=== PATIENT | male | born 1970 | race Caucasian/White ===

== ENCOUNTER 2019-07-26 16:04 | Outpatient (CLI) | payer OTHER, SELFPAY ==
--- NOTE | ~2019-07-26 | XR_ITS ---
EXAMINATION: XR foot LT 2V DATE: 07/26/2019 16:41 INDICATION: Pain at the left first metatarsal TECHNIQUE: Dorsoplantar and lateral views of the left foot were obtained. COMPARISON: None. FINDINGS: Bone alignment is normal. No acute fracture. Suggestion of possible old fracture deformity at the hea d of the second middle phalanx. Mild to moderate osteoarthritis at the first metatarsophalangeal join t. Additional mild osteoarthritis at a few of the interphalangeal joints. Soft tissues are unremarkab le. IMPRESSION: 1. 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 Reviewed, dictated and finalized at location A. URY WASHER
[2019-07-26 16:46] LABS: Blood Urea Nitrogen 17 mg/dL (9-20); Calcium 9.4 mg/dL (8.4-10.2); Carbon Dioxide 31 mmol/L (22-30); Chloride 99 mmol/L (98-107); Estimated Glomerular Filt Rate > 60; Glucose 84 mg/dL (75-110); Potassium 4.4 mmol/L (3.4-5.0); Sodium 139 mmol/L (137-145); Uric Acid 4.3 mg/dL (3.5-8.5)
== END 2019-07-26 16:05 | disposition home or self-care (01) ==
LOC: ANHLAB 16:06
PROVIDERS: PCP Family Medicine; Visit Provider Nurse Practitioner Family
DX: M19.072 Primary osteoarthritis, left ankle and foot (principal)
CPT/HCPCS: 36415; 73620; 80048; 84550

== ENCOUNTER 2019-10-21 10:22 | Outpatient (CLI) | payer OTHER, SELFPAY ==
--- NOTE | ~2019-10-21 | XR_ITS ---
EXAMINATION: XR finger 4th LT min 2V DATE: 10/21/2019 10:54 INDICATION: Left hand fourth digit pain and swelling. TECHNIQUE: 4 views of left hand fourth digit were obtained. COMPARISON: None. FINDINGS: Bone alignment is normal. No fracture. Joint spaces are normal. IMPRESSION: 1. No fracture. Reviewed, dictated and finalized at location A. IMPRESSION: 1. No fracture.
== END 2019-10-21 10:23 | disposition home or self-care (01) ==
PROVIDERS: PCP Family Medicine; Visit Provider Nurse Practitioner Family
DX: M79.643 Pain in unspecified hand (principal)
CPT/HCPCS: 73140

== ENCOUNTER 2019-10-21 10:52 | Emergency (ER) | payer OTHER, SELFPAY ==
[2019-10-21 11:12] VITALS: BP 116/76; PULSE 59; RESP 16; TEMP 36.5; O2SAT 99
--- NOTE | 2019-10-21 11:38 | ED.UPPEXIN ---
HPI - Extremity Injury (Upper) General Chief Complaint: Extremity Injury, Upper Stated Complaint: needs ring cut off Time Seen by Provider: 10/21/19 10:58 Source: RN notes reviewed History of Present Illness HPI narrative: Patient presents emergency department from home for left fourth digit injury. Patient states that he was struck with a piece with a left fourth digit yesterday. He states that he had swelling in that finger. He states that prior to this he had had a ring stuck on his left finger for the past 2 months. He states he tried to get off last night with no relief went to his PCP this morning where they were unable to remove the ring and he was sent for an x-ray. Patient is able to fully extend and flex at the digit denies any other injury Related Data Allergies Allergy/AdvReac Type Severity Reaction Status Date / Time No Known Allergies Allergy Verified 07/26/19 15:01 Review of Systems Review of Systems: Narrative: Gen.: Denies fevers or chills Musculoskeletal: See HPI Neuro: Denies numbness, tingling, weakness Skin: Denies rash Endo: Denies DM PMFSH Past Medical History Medical History (Updated 10/21/19 @ 11:42 by Saad Lucia DO) Patient denies significant medical history Social History Social History Smoking status: Never smoker Second hand tobacco smoke exposure: No Alcohol intake: never Exam Narrative: Exam Narrative: APPEARANCE: No acute distress, nontoxic, resting in bed Eyes: EOMI HEENT: Normocephalic, atraumatic, RESPIRATORY: No respiratory distress MUSCULOSKELETAl: Tender palpation diffusely of the fourth digit on the left with swelling present, a ring is stuck at the base of the digit, capillary refill less than 3 seconds, full flexion extension of the PIP DIP and MCP joint of the fourth digit NEURO: Awake and alert. Following commands, speech normal, no focal deficits SKIN:: Warm, dry. Normal Color no rash or lesions Course Course Emergency Course: Reviewed patient's finger x-ray from outpatient with no fracture seen Procedure note: Ring removal was performed by myself using ring cutters. Following this closure used to spread the ring and the ring was removed Discussed with patient results of workup and diagnosis. Discussed need for follow-up with primary care, proper use of medication, and reasons to return to the emergency department. Patient understands and agrees to current treatment plan Vital Signs Vital signs: Vital Signs Temperature 97.7 F 10/21/19 11:12 Pulse Rate 59 L 10/21/19 11:12 Respiratory Rate 16 10/21/19 11:12 Blood Pressure 116/76 10/21/19 11:12 Pulse Oximetry 99 10/21/19 11:12 Temperature 97.7 F 10/21/19 11:12 Pulse Rate 59 L 10/21/19 11:12 Respiratory Rate 16 10/21/19 11:12 Blood Pressure 116/76 10/21/19 11:12 Pulse Oximetry 99 10/21/19 11:12 Procedures Orthopedic Splinting/Casting Injury #1: Splint: prefabricated Pre-Formed: other (AlumaFoam finger splint) Pre-Procedure Neuro Vascular Exam: normal Post-Procedure Neuro Vascular Exam: normal Discharge Plan Discharge Clinical Impression: Finger sprain, Tight ring on finger Patient Disposition: Home, Self-Care Condition: Stable Instructions: Antibiotic Form, Finger Sprain (ED) Additional Instructions: Return for increasing pain numbness tingling in extremities or any other symptoms of concern Prescriptions: No Action nabumetone 750 mg tablet 750 mg PO BID Qty: 60 RF: 1 Follow-up/Referrals: Peter Flynn MD [Primary Care Provider] - 2 Days Time of Disposition: 11:42
--- NOTE | 2019-10-29 21:19 | PC.NURSE ---
late entry by this RN Pt received a finger splint for right hand ring finger.
== END 2019-10-21 11:48 | disposition home or self-care (01) ==
PROVIDERS: Emergency Provider Emergency Medicine; PCP Family Medicine
DX: S63.615A Unspecified sprain of left ring finger, initial encounter (principal); W49.04XA Ring or other jewelry causing external constriction, initial encounter
CPT/HCPCS: 29130; 99282

== ENCOUNTER → 2019-12-27 10:24 | Outpatient (CLI) | payer OTHER, SELFPAY ==
--- NOTE | ~2019-12-27 | XR_ITS ---
XR thoracic spine 3V DATE: 12/27/2019 10:43 INDICATION: Thoracic back pain TECHNIQUE: AP, lateral, swimmer views COMPARISON: None FINDINGS: Mild dextroscoliosis of the cervical and upper thoracic spine. No fracture or dislocation o r bone destruction. The thoracic pedicles are intact. No paraspinal soft tissue thickening. There is minimal degenerative spurring of the thoracic spine. IMPRESSION: Minimal degenerative spurring Reviewed, dictated and finalized at location B.
--- NOTE | ~2019-12-27 | XR_ITS ---
XR cervical spine min 6V DATE: 12/27/2019 10:43 INDICATION: Neck pain. No recent trauma. TECHNIQUE: AP, open-mouth, lateral, bilateral oblique views. Flexion and extension lateral views. COMPARISON: None FINDINGS: There is reversal of cervical curvature. There is mild dextro scoliosis of the cervical and upper thoracic spine. C1 and C2 are normally aligned and the odontoid process is intact. No fracture or dislocation or lock ed facet. No prevertebral soft tissue swelling. There is mild degenerative disease at C4-5 and moderate degenerative disease at C5-6 and C6-7. There is no instability on flexion or extension. There is mild uncovertebral joint spurring encroaching mildly upon the anterior aspect of the left C4 and C6 neural foramina and apparently to a greater extent at the anterior left C7 neural foramen. Th ere is minimal anterior encroachment at the anterior aspect of the right C4 neural foramen due to unc overtebral joint spurring. IMPRESSION: Reversal of cervical curvature Mild to moderate degenerative changes Reviewed, dictated and finalized at location B.
== END ==
PROVIDERS: PCP Nurse Practitioner Family; Visit Provider Nurse Practitioner Family
DX: M50.30 Other cervical disc degeneration, unspecified cervical region (principal)
CPT/HCPCS: 72052; 72072

== ENCOUNTER 2020-01-10 07:48 | Outpatient (CLI) | payer OTHER, SELFPAY ==
--- NOTE | ~2020-01-10 | MR_ITS ---
EXAMINATION: MR cervical spine wo con EXAM DATE: 01/10/2020 08:40 INDICATION: Cervical disc disorder. TECHNIQUE: Multi-sequential, multiplanar MR images of the cervical spine were obtained without contra st. Axial T2, axial T2 MERGE sequence. Sagittal T1, T2, T2 fat saturation images also obtained. Th ere is no prior study for comparison. FINDINGS: The vertebral bodies are aligned in the AP dimension. There is mild disc disease from C4-7 . The spinal cord signal intensity and intrinsic morphology is normal. Cervicomedullary junction is n ormal in appearance. There are no suspicious marrow signal abnormalities. Paraspinal soft tissue is u nremarkable. Level by level evaluation: C2-C3: Disc does not extend beyond the endplate margin. Uncovertebral joint arthropathy: Mild bilateral. Facet joint arthropathy: Mild to moderate right, mild left. Neural foraminal stenosis: No stenosis. Central canal stenosis: No stenosis. C3-C4: Disc does not extend beyond the endplate margin. Uncovertebral joint arthropathy: Moderate left, mild to moderate right. Facet joint arthropathy: Mild to moderate bilateral. Neural foraminal stenosis: Moderate left, mild to moderate right. Central canal stenosis: No stenosis. C4-C5: There is a mild diffuse disc bulge. Uncovertebral joint arthropathy: Moderate bilateral. Facet joint arthropathy: Mild to moderate left, mild right. Neural foraminal stenosis: Mild to moderate left, mild right. Central canal stenosis: Mild. C5-C6: There is a mild diffuse disc bulge. Uncovertebral joint arthropathy: Moderate bilateral. Facet joint arthropathy: Mild to moderate bilateral. Neural foraminal stenosis: Moderate bilateral. Central canal stenosis: Mild. C6-C7: There is a mild to moderate diffuse disc bulge asymmetric to the left Uncovertebral joint arthropathy: Moderate to severe left, moderate right. Facet joint arthropathy: Mild bilateral. Neural foraminal stenosis: Moderate to severe bilateral. Central canal stenosis: Mild. C7-T1: Disc does not extend beyond the endplate margin. Uncovertebral joint arthropathy: Moderate left, mild to moderate. Facet joint arthropathy: Mild left. Neural foraminal stenosis: Mild to moderate left. Central canal stenosis: No stenosis. IMPRESSION: 1. Multilevel neural foraminal stenosis as detailed above. Reviewed, dictated and finalized at location A.
== END 2020-01-10 07:49 | disposition home or self-care (01) ==
LOC: ANHIMG 07:49
PROVIDERS: PCP Nurse Practitioner Family; Visit Provider Nurse Practitioner Family
DX: M50.90 Cervical disc disorder, unspecified, unspecified cervical region (principal)
CPT/HCPCS: 72141

== ENCOUNTER → 2020-03-03 07:38 | Outpatient (CLI) | payer OTHER, SELFPAY ==
--- NOTE | ~2020-03-03 | XR_ITS ---
EXAMINATION:XR_CERV2-3V_CR DATE: 03/03/2020 08:00 INDICATION: Neck pain TECHNIQUE: AP, lateral, and odontoid views of the cervical spine are provided. COMPARISON: MRI, 01/10/2020 FINDINGS: There are changes of interval anterior fusion and interbody device placement from C5 throug h C7. Bone alignment is normal. The odontoid is intact. No fracture is identified. The vertebral body heights are maintained. Prevertebral soft tissues are normal. IMPRESSION: 1. Changes of interval anterior lower cervical fusion without acute findings. Reviewed, dictated and finalized at location B.
== END ==
PROVIDERS: PCP Family Medicine; Visit Provider Neurological Surgery
DX: M54.2 Cervicalgia (principal); Z98.1 Arthrodesis status
CPT/HCPCS: 72040

== ENCOUNTER → 2020-04-25 08:00 | Outpatient (CLI) | payer OTHER, SELFPAY ==
--- NOTE | ~2020-04-25 | XR_ITS ---
EXAMINATION:XR_CERV2-3V_CR DATE: 04/25/2020 08:49 INDICATION: Cervicalgia, arthrodesis status assessment TECHNIQUE: AP and lateral views of the cervical spine are obtained. COMPARISON: 03/03/2020 FINDINGS: Alignment is normal. There are stable changes of anterior fusion and interbody device place ment from C5 through C7. The odontoid is intact. No fracture is identified. The vertebral body height s are maintained. Prevertebral soft tissues are normal. IMPRESSION: 1. Changes of anterior fusion from C5 through C7 without acute findings or significant interval early e. Reviewed, dictated and finalized at location A. 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 Changes of anterior fusion from C5 through C7 without acute findings or sign ificant interval change.
== END ==
PROVIDERS: PCP Family Medicine; Visit Provider Neurological Surgery
DX: M54.2 Cervicalgia (principal); Z98.1 Arthrodesis status
CPT/HCPCS: 72040

== ENCOUNTER 2021-11-09 08:00 | Outpatient (CLI) | payer OTHER, SELFPAY ==
--- NOTE | ~2021-11-09 | XR_ITS ---
EXAMINATION: XR chest 2V 11/09/2021 08:22 INDICATION: Dry cough. Acute bronchitis. PROCEDURE: 2 view chest COMPARISON: 11/07/2017 FINDINGS: The lungs are clear. The cardiomediastinal silhouette is within normal limits. There are no pleural effusions. There is no pneumothorax suspected. IMPRESSION: 1: NO ACUTE CARDIOPULMONARY DISEASE. Reviewed, dictated and finalized at location D.
== END 2021-11-09 08:01 | disposition home or self-care (01) ==
LOC: ANHIMG 08:02
PROVIDERS: PCP Family Medicine; Visit Provider Nurse Practitioner Family
DX: J20.9 Acute bronchitis, unspecified (principal)
CPT/HCPCS: 71046

== ENCOUNTER 2021-12-10 14:38 | Outpatient (CLI) | payer OTHER, SELFPAY ==
--- NOTE | ~2021-12-10 | XR_ITS ---
EXAMINATION: XR chest 2V DATE: 12/10/2021 15:07 INDICATION: Cough TECHNIQUE: PA and lateral views of the chest were obtained. COMPARISON: Chest radiograph dated 11/09/2021 FINDINGS: The lungs remain clear with no focal airspace opacities, pulmonary edema, pleural effusion or pneumot horax. The cardiomediastinal silhouette is normal. Mild thoracic spondylosis. Lower cervical anterior spinal fusion with interbody bone graft cages and anterior plate and screw fixation. Suture anchor a t the left greater tuberosity suggesting prior rotator cuff repair. IMPRESSION: 1. No acute cardiopulmonary disease. Reviewed, dictated and finalized at location B.
== END 2021-12-10 14:39 | disposition home or self-care (01) ==
PROVIDERS: PCP Family Medicine; Visit Provider Nurse Practitioner Family
DX: R05.9 Cough, unspecified (principal)
CPT/HCPCS: 71046

== ENCOUNTER 2022-01-29 13:43 | Outpatient (CLI) | payer OTHER, SELFPAY ==
--- NOTE | ~2022-01-29 | CT_ITS ---
EXAMINATION: CT diagnostic chest wo con DATE: 01/29/2022 14:05 INDICATION: Cough, dyspnea on exertion. Occupational exposure in the . TECHNIQUE: Computed tomography (CT) of the chest was performed without intravenous contrast. Automate d exposure control and iterative reconstruction technique were employed. Exam dose: 245.50 mGy-cm to brody exam DLP. COMPARISON: 12/10/2021 PA and lateral chest FINDINGS: No pulmonary infiltrate or consolidation or pulmonary mass lesion. Normal heart size. No pericardial or pleural effusion. No hilar or mediastinal mass lesion or lymphad enopathy. Normal caliber of the thoracic aorta. Normal morphology of the adrenal glands. Status post cholecystectomy. Status post lower anterior cervical spine surgical fusion. Included skeletal structures are otherwise unremarkable. IMPRESSION: Status post lower anterior cervical spine surgical fusion Status post cholecystectomy No significant abnormality of the thorax Reviewed, dictated and finalized at Location A. Reviewed, dictated and finalized at location B.
--- NOTE | 2022-01-29 16:18 | WPDPFTINT ---
PFT Procedure Performed PFT Procedure Performed Spirometry with Pre/Post Bronchodilator Plethysmography (Lung Vol) Diffusing Cap (DLCO) Flow Vol Loop PFT Interpretation Lung volumes were measured with the body plethysmography method. Lung volumes are unremarkable. Spirometry showed normal expiratory flow rates and a normal FEV1 to FVC ratio of 71%. Following administration of a bronchodilator there was significant increase in the FEV1. Lung diffusion capacity is within the normal range. The flow volume loop is unremarkable. Impression: Spirometry, lung volumes, and lung diffusion capacity all within the normal range.
== END 2022-01-29 13:44 | disposition home or self-care (01) ==
PROVIDERS: PCP Family Medicine; Visit Provider Physician Assistant
DX: R05.3 Chronic cough (principal); R06.00 Dyspnea, unspecified; Z77.118 Contact with and (suspected) exposure to other environmental pollution; Z90.49 Acquired absence of other specified parts of digestive tract; Z98.1 Arthrodesis status
CPT/HCPCS: 36415; 71250; 82785; 86003; 94060; 94726; 94729

== ENCOUNTER 2022-08-06 08:01 | Emergency (ER) | payer OTHER, SELFPAY ==
[2022-08-06 08:11] VITALS: BP 115/80; PULSE 80; RESP 16; TEMP 36.5; O2SAT 99
--- NOTE | 2022-08-06 08:34 | ED.GENADULT ---
HPI - General Adult General Chief complaint: Skin/Abscess/Foreign Body Stated complaint: BACK PAIN/HIVES Source: patient Mode of arrival: ambulatory Limitations: no limitations History of Present Illness HPI narrative: Patient presents for evaluation of a rash. He indicates he has had symptoms for since April 2022. No new lotions, soaps, topical products or detergents. No new foods. He has been given Medrol Dosepak and triamcinolone without considerable improvement in his symptoms. He has taken Xyzal and Pepcid with improvement in his symptoms. Thiis morning he woke with some swelling to his lower lip. He is not on an martin inhibitor. No difficulty breathing or swallowing. He has some low back pain after doing some yardwork. Related Data Allergies Allergy/AdvReac Type Severity Reaction Status Date / Time No Known Allergies Allergy Verified 08/06/22 08:22 Review of Systems Review of Systems: CONSTITUTIONAL: Denies fever, chills, or sweats. EYES: Denies visual changes, redness, or discharge. ENT: Denies rhinorrhea, congestion, sore throat, or otalgia. CARDIOVASCULAR: Denies chest pain, palpitations, or edema. RESPIRATORY: Denies cough or dyspnea. GASTROINTESTINAL: Denies abdominal pain, nausea, vomiting, or diarrhea. GENITOURINARY: Denies dysuria or hematuria. SKIN: Reports rash to torso and extremities x 4. MUSCULOSKELETAL: Reports low back pain. Denies joint pain, or myalgia. NEUROLOGIC: Denies headache, numbness, dizziness, or weakness. PSYCHIATRIC: Denies anxiety or depression. [facility] Past Medical History Medical History BMI 25.0-25.9,adult Disc disorder of cervical region Occupational exposure to environmental pollution Other cervical disc degeneration, cervicothoracic region Pancreatitis Patient denies significant medical history Rotator cuff syndrome of left shoulder Thoracic disc disease Surgical History Surgical History History of cholecystectomy History of fusion of cervical spine History of neck surgery History of repair of left rotator cuff Family History Family History Father No problems noted. Mother No problems noted. Social History Social History Smoking status: Never smoker Second hand tobacco smoke exposure: No Alcohol intake: never Substance use: never Substance use type: does not use Living arrangements: with family Occupation/Education: occupation Additional occupation/education comments: [employer] Gender identity (if verbalized by the patient): Male Exam Narrative: GENERAL: Well-appearing, well-nourished, and in no acute distress. HEAD: Normocephalic, atraumatic. EYES: PERRLA and EOMI. ENT: Nares clear, no rhinorrhea or epistaxis. Mucous membranes moist. Oropharynx without tonsillar hypertrophy exudate or other lesions. Bilateral TMs pearly dillard nonbulging NECK: Supple. No adenopathy or masses. No carotid bruits or JVD CHEST: Clear to auscultation. No respiratory distress. No wheezes rales or rhonchi HEART: Regular rate and rhythm. No murmur heard. Normal peripheral pulses. ABDOMEN: Soft, nontender, nondistended, normal active bowel sounds. EXTREMITIES: Normal range of motion. No edema. SKIN: There are a few annular areas of erythema to the bilateral upper extremities, torso and lower extremities NEURO: No focal deficits. Alert and oriented x3. PSYCH: Normal mood and affect. Course Course Emergency Course: This is a 52-year-old male who presented for evaluation of a rash. This appears to be tinea to BUE. Will tx with ketoconazole. He has mild swelling to lower lip without any posterior pharyngeal swelling or evidence of airw[place] compromise. Given solumedrol while here and will dc with predniso
[2022-08-06] MEDS: methylPREDNISolone SOD SUCC 125 MG VIAL IM (08:38)
== END 2022-08-06 08:38 | disposition home or self-care (01) ==
PROVIDERS: Emergency Provider Nurse Practitioner; PCP Family Medicine
DX: R22.0 Localized swelling, mass and lump, head (principal); T78.40XA Allergy, unspecified, initial encounter; B35.9 Dermatophytosis, unspecified
CPT/HCPCS: 96372; 99213; G0463; J2930

== ENCOUNTER 2022-08-18 08:29 | Emergency (ER) | payer OTHER, SELFPAY ==
[2022-08-18 08:58] VITALS: BP 107/76; PULSE 98; RESP 16; TEMP 36.4; O2SAT 97
--- NOTE | 2022-08-18 09:38 | ED.URI ---
HPI - URI/Sore Throat General Chief Complaint: Upper Respiratory Infection Stated Complaint: SORE THROAT Time Seen by Provider: 08/18/22 09:38 Source: patient, RN notes reviewed and old records reviewed Mode of arrival: ambulatory Limitations: no limitations History of Present Illness HPI Narrative: 52 year old male who [facility] with complaints of sore throat for the past 2days with some nasal congestion and dry cough. Patient reports that he has been taking some Tylenol and Benadryl for his symptoms. Patient reports his throat pain to be 6/10 and describes as sharp. Patient reports that son has been ill also.Patient has been COVID vaccinated but no flu shot. MD elicited complaint: cough and sore throat Onset (ago): day(s) (day 2 of symptoms) Pain scale (0-10): 6 Exacerbating factors: swallowing Treatments prior to arrival: acetaminophen and other (benadryl) Related Data Allergies Allergy/AdvReac Type Severity Reaction Status Date / Time No Known Allergies Allergy Verified 08/18/22 08:49 Review of Systems Review of Systems: CONSTITUTIONAL: Denies malaise, chills, sweats, or fever. EYES: Denies visual changes, redness, or discharge. ENT: Reports rhinorrhea, congestion, no sinus pain, no otalgia positive for sore throat. CARDIOVASCULAR: Denies chest pain, palpitations, or edema. RESPIRATORY: Reports cough.? Denies dyspnea. GASTROINTESTINAL: Denies abdominal pain, nausea, vomiting, diarrhea SKIN: Denies rash or itching. MUSCULOSKELETAL: Denies myalgia. NEUROLOGIC: Denies headache. All systems reviewed & are unremarkable except as noted in HPI and below [facility] Past Medical History Medical History BMI 25.0-25.9,adult Disc disorder of cervical region Occupational exposure to environmental pollution Other cervical disc degeneration, cervicothoracic region Pancreatitis Patient denies significant medical history Rotator cuff syndrome of left shoulder Thoracic disc disease Surgical History Surgical History History of cholecystectomy History of fusion of cervical spine History of neck surgery History of repair of left rotator cuff Family History Family History Father No problems noted. Mother No problems noted. Social History Social History Smoking status: Never smoker Second hand tobacco smoke exposure: No Alcohol intake: never Substance use: never Substance use type: does not use Living arrangements: with family Occupation/Education: occupation Additional occupation/education comments: [employer] Gender identity (if verbalized by the patient): Male Comments At time of signature, agree with nursing past medical, surgical, social and family history. There is no relevant family history pertinent to the presenting complaint Exam Narrative: GENERAL: Well-appearing, well-nourished, and in no acute distress. HEAD: Normocephalic EYES: PERRLA, conjunctivae clear ENT: Nares clear, turbinates edematous and erythematous, clear discharge. Mucous membranes moist. TM pearly dillard with dull light reflex bilaterally; no tragal tenderness. Oropharynx erythematous without lesions. Tonsils red mildly enlarged and without exudate, no drooling, no hoarseness, no trismus, uvula midline.post nasal drainage NECK: Supple. No lymphadenopathy CHEST: Clear to auscultation, breath sounds equal. No wheezing, rhonchi, rales, or stridor. No respiratory distress, speaks in full sentences.dry cough, SAO2 97% on room air. HEART: Regular rate and rhythm. No murmur heard. SKIN: Warm, dry, no rash. NEURO: Alert and oriented x3. PSYCH: Normal mood and affect Course Course Emergency Course: Patient is aware of diagnosis, understan
== END 2022-08-18 09:57 | disposition home or self-care (01) ==
PROVIDERS: Emergency Provider Registered Nurse; PCP Family Medicine
DX: J06.9 Acute upper respiratory infection, unspecified (principal); R05.9 Cough, unspecified; J02.9 Acute pharyngitis, unspecified; M50.33 Other cervical disc degeneration, cervicothoracic region
CPT/HCPCS: 87081; 87880; 99213; G0463

== ENCOUNTER → 2023-01-14 15:56 | Outpatient (CLI) | payer OTHER, SELFPAY ==
--- NOTE | ~2023-01-14 | XR_ITS ---
XR lumbar spine 2-3V 01/14/2023 16:45 Indication: Low back pain. Sciatica. Procedure: 3 views lumbar spine Comparison: No prior studies for comparison. Findings: Vertebral body heights are maintained. There is disc narrowing at L1-2, L4-5 and L5-S1. No evidence for spondylolisthesis. No acute fracture or traumatic malalignment. Pedicles intact. Sacral foramen are symmetric. There are cholecystectomy clips. Impression: 1: Moderate lumbar spondylosis. Reviewed, dictated and finalized at location A. Impression: 1: Moderate lumbar spondylosis.
--- NOTE | ~2023-01-14 | XR_ITS ---
Cervical Spine: AP, lateral, open-mouth views Clinical History: Pain Findings: The normal lordotic curve is maintained. No fracture or sublocation. There is anterior fusi on from C5 to C7, with associated interbody fusion at C5-C6 and C6-C7. There is moderate degenerative disc narrowing at C4-C5. Pre-vertebral soft tissues are unremarkable. Impression: Anterior and interbody fusion from C5 to C7, as noted above. Moderate degenerative disc narrowing at C4-C5. Reviewed, dictated and finalized at [facility]. Impression: Anterior and interbody fusion from C5 to C7, as noted above. Moderate degenerative disc narrowing at C4-C5.
== END ==
PROVIDERS: PCP Physician Assistant Medical; Visit Provider Physician Assistant Medical
DX: M54.12 Radiculopathy, cervical region (principal); M54.40 Lumbago with sciatica, unspecified side; Z98.1 Arthrodesis status; M47.896 Other spondylosis, lumbar region
CPT/HCPCS: 72050; 72100

== ENCOUNTER 2023-01-30 14:24 | Outpatient (CLI) | payer OTHER, SELFPAY ==
--- NOTE | ~2023-01-30 | MR_ITS ---
EXAMINATION: MR cervical spine wo con DATE: 01/30/2023 15:49 INDICATION: Cervical radiculopathy. TECHNIQUE: Magnetic resonance imaging (MRI) of the cervical spine was performed without intravenous c ontrast. Sequences included sagittal T2-weighted FSE, sagittal T2-weighted FS FSE, sagittal T1-weight ed FSE, axial MERGE, and axial T2-weighted FSE. COMPARISON: Cervical spine MRI 01/10/2020 FINDINGS: Bone alignment is normal. Vertebral body heights are normal. There is mildly decreased disc height at C3-C4. There are changes of anterior fusion procedure from C5 to C7 with interbody devices and anterior plate and screws. The spinal cord signal intensity is normal. The following disc levels are specifically discussed: C2-C3: There is a central protrusion. There is mild bilateral uncovertebral joint osteoarthritis. The re is mild bilateral facet joint osteoarthritis. There is no neural foraminal stenosis. There is no c entral canal stenosis. C3-C4: There is a central protrusion. There is mild right and moderate left uncovertebral joint osteo arthritis. There is moderate right and severe left facet joint osteoarthritis. There is mild right an d moderate left neural foraminal stenosis. There is no central canal stenosis. C4-C5: There is a central protrusion with annular fissure. There is moderate bilateral uncovertebral joint osteoarthritis. There is mild right and moderate left facet joint osteoarthritis. There is mild right and moderate left neural foraminal stenosis. There is mild central canal stenosis. C5-C6: There is mild bilateral uncovertebral joint hypertrophy. There is mild left facet joint osteoa rthritis. There is mild bilateral neural foraminal stenosis. There is no central canal stenosis. C6-C7: There is moderate and severe left uncovertebral joint osteoarthritis. There is mild bilateral facet joint osteoarthritis. There is mild bilateral neural foraminal stenosis. There is no central ca nal stenosis. C7-T1: The disc does not extend beyond the endplate margin. There is no uncovertebral joint osteoarth ritis. There is severe right and moderate left facet joint osteoarthritis. There is mild bilateral ne ural foraminal stenosis. There is no central canal stenosis. IMPRESSION: 1. Anterior fusion procedure from C5 to C7. 2. Moderate cervical spondylosis. Reviewed, dictated and finalized at location A.
--- NOTE | ~2023-01-30 | MR_ITS ---
EXAMINATION: MR lumbar spine wo con DATE: 01/30/2023 15:49 INDICATION: Lumbago with sciatica, unspecified side. TECHNIQUE: Magnetic resonance imaging (MRI) of the lumbar spine was performed without intravenous con trast. Sequences included sagittal T2-weighted FSE, sagittal T2-weighted FS FSE, sagittal T1-weighted FSE, and axial T2-weighted FSE. COMPARISON: Lumbar spine radiographs 01/14/2023 FINDINGS: There is 4 degrees levocurvature of lumbar spine. Vertebral body heights are normal. There is mildly decreased disc height at L1-L2. The distal spinal cord signal intensity is normal. The conu s medullaris is at L2. The following disc levels are specifically discussed: L1-L2: The disc is bulging and has an annular fissure. There is mild bilateral facet joint osteoarthr itis. There is no neural foraminal stenosis. There is mild central canal stenosis. L2-L3: The disc is bulging and has an annular fissure. There is severe bilateral facet joint osteoart hritis. There is mild bilateral neural foraminal stenosis. There is mild central canal stenosis. L3-L4: The disc is bulging and has an annular fissure. There is mild right and moderate left facet nayeli int osteoarthritis. There is mild bilateral neural foraminal stenosis. There is mild central canal st enosis. L4-L5: The disc is bulging. There is mild bilateral facet joint osteoarthritis. There is mild bilater al neural foraminal stenosis. There is mild central canal stenosis. L5-S1: The disc is bulging and has an annular fissure. There is mild bilateral facet joint osteoarthr itis. There is mild bilateral neural foraminal stenosis. There is mild central canal stenosis. IMPRESSION: 1. Mild lumbar spondylosis. Reviewed, dictated and finalized at location A. IMPRESSION: 1. Mild lumbar spondylosis.
== END 2023-01-30 14:25 | disposition home or self-care (01) ==
PROVIDERS: PCP Physician Assistant Medical; Visit Provider Physician Assistant Medical
DX: M54.40 Lumbago with sciatica, unspecified side (principal); M47.816 Spondylosis without myelopathy or radiculopathy, lumbar region; M50.90 Cervical disc disorder, unspecified, unspecified cervical region; M54.12 Radiculopathy, cervical region; R20.0 Anesthesia of skin; R20.2 Paresthesia of skin; Z98.1 Arthrodesis status; M47.892 Other spondylosis, cervical region
CPT/HCPCS: 72141; 72148

== ENCOUNTER 2023-10-22 11:14 | Outpatient (CLI) | payer OTHER, SELFPAY ==
--- NOTE | ~2023-10-22 | XR_ITS ---
Clinical Indication: Cough PA and lateral views of the chest: Comparison: 12/10/2021 Findings: The lungs are clear, without evidence of focal consolidation or pleural effusion. Cardiome diastinal silhouette is within normal limits. Bones and soft tissues are unremarkable. Impression: Normal chest. Reviewed, dictated and finalized at location . Impression: Normal chest.
== END 2023-10-22 11:15 ==
PROVIDERS: PCP Family Medicine; Visit Provider Physician Assistant
DX: R05.9 Cough, unspecified (principal)
CPT/HCPCS: 71046